=== PATIENT | female | born 1990 | race American Indian/Alaskan Native ===

== ENCOUNTER 2020-01-21 20:46 | Emergency (ER) | payer MEDICAID ==
[2020-01-22] MEDS ORDERED: KETOROLAC 30 MG/1 ML INJ IM ONE (01:31)
[2020-01-22] MEDS ORDERED: oxyCODONE /ACETAMINOPHEN 5-325MG TAB PO ONE (01:31)
[2020-01-22] MEDS ORDERED: ONDANSETRON 4 MG ODT TAB PO ONE (01:31)
--- NOTE | 2020-01-22 01:43 | Emergency Department Report ---
ED General Adult HPI - General Chief complaint: Dental/Oral Stated complaint: TOOTH PAIN Source: patient Mode of arrival: Ambulatory Limitations: No Limitations - History of Present Illness Initial comments: Patient is a 29-year-old -[place] female with no past medical history presents to the ED with complaint of acute onset persistent severe left maxillary premolar molar toothache with swollen gums for the last 3 days. Patient states that she was initially evaluated and treated at another hospital where she was given a prescription of Augmentin 875-125 mg to be taken twice a day, and was also given a prescription for viscous lidocaine to swish and swallow for pain control as well as Orajel but the patient states that these medications have not helped control her pain. Patient states that the pain is constant and that she is unable to eat or sleep because of severe pain. Patient denies fever, chills, nausea, vomiting, dizziness, syncope, sore throat, abdo theo pain, headache, cough or nasal and sinus congestion and traumatic injury. MD Complaint: left maxillary premolar and molar toothache -: Sudden, days(s) (3) Radiation: non-radiation Severity scale (0 -10): 8 Quality: aching, sharp Consistency: constant Improves with: none Worsens with: none Associated Symptoms: denies other symptoms. denies: confusion, chest pain, cou gh, diaphoresis, fever/chills Treatments Prior to Arrival: NSAID - Related Data Previous Rx's Medication Instructions Recorded Last Taken Type Acetaminophen/Codeine [Tylenol 1 - 2 tab PO Q6H PRN #12 tab 01/22/20 Unknown Rx /Codeine # 3 tab] Allergies Allergy/AdvReac Type Severity Reaction Status Date / Time No Known Allergies Allergy Verified 01/21/20 21:19 ED Review of Systems ROS: Stated complaint: TOOTH PAIN Other details as noted in HPI Constitutional: denies: chills, fever Eyes: denies: eye pain, eye discharge, vision change ENT: dental pain, other (Swollen left maxillary gingiva with premolar molar toothache). denies: ear pain, throat pain Respiratory: denies: cough, shortness of breath, wheezing Cardiovascular: denies: chest pain, palpitations Endocrine: no symptoms reported Gastrointestinal: denies: abdominal pain, nausea, diarrhea Genitourinary: denies: urgency, dysuria, discharge Musculoskeletal: denies: back pain, joint swelling, arthralgia Skin: denies: rash, lesions Neurological: denies: headache, weakness, paresthesias Psychiatric: denies: anxiety, depression Hematological/Lymphatic: denies: easy bleeding, easy bruising ED Past Medical Hx - Past Medical History Previous Medical History?: No - Surgical History Past Surgical History?: No - Social History Smoking Status: Never Smoker Substance Use Type: None - Medications Home Medications: Home Medications Medication Instructions Recorded Confirmed Last Taken Type Acetaminophen/Codeine [Tylenol 1 - 2 tab PO Q6H PRN #12 tab 01/22/20 Unknown Rx /Codeine # 3 tab] ED Physical Exam - General Limitations: No Limitations General appearance: alert, in no apparent distress - Head Head exam: Present: atraumatic, normocephalic - Eye Eye exam: Present: normal appearance, PERRL, EOMI Pupils: Present: normal accommodation - ENT ENT exam: Present: normal exam, mucous membranes moist, TM's normal bilaterally, normal external ear exam, other (Swelling, tender left maxillary gingiva with severely tender left maxillary premolar molar teeth) - Neck Neck exam: Present: normal inspection - Respiratory Respiratory exam: Present: normal lung sounds bilaterally. Absent: respiratory distress, wheezes, rales, rhonchi, chest wall tenderness, accessory muscle use - Cardiovascular Cardiovascular Exam: Present: regular rate, normal rhythm, normal heart sounds. Absent: systolic murmur, diastolic murmur, rubs, gallop - GI/Abdominal GI/Abdominal exam: Present: soft, normal bowel sounds. Absent: tenderness, guarding, rebound, hyperactive bowel sounds - Extremities Exam Extremities exam: Present: normal inspection, full ROM, normal capillary refill - Back Exam Back exam: Present: normal inspection, full ROM. Absent: tenderness, CVA tenderness (R), muscle spasm, paraspinal tenderness, vertebral tenderness - Neurological Exam Neurological exam: Present: alert, oriented X3, CN II-XII intact, normal gait, reflexes normal - Psychiatric Psychiatric exam: Present: normal affect, normal mood - Skin Skin exam: Present: warm, dry, intact, normal color. Absent: rash ED Course Vital Signs 01/21/20 01/22/20 21:13 01:47 Temperature 98.6 F Pulse Rate 70 Respiratory 16 20 Rate Blood Pressure 144/94 O2 Sat by Pulse 100 Oximetry ED Medical Decision Making - Medical Decision Making This is a 29-year-old -[place] female with no past medical history presents to the ED with complaint of acute onset persistent severe left maxillary premolar molar toothache with swollen gums for the last 3 days. Patient states that she was initially evaluated and treated at another hospital where she was given a prescription of Augmentin 875-125 mg to be taken twice a day, and was also given a prescription for viscous lidocaine to swish and swallow for pain control as well as Orajel but the patient states that these medications have not helped control her pain. Patient states that the pain is constant and that she is unable to eat or sleep because of severe pain. In the ED, patient is alert and oriented x3 and is not in distress. Patient was treated for pain in the ED. Lab test results for showed a positive hCG serum test. On reevaluation, patient's pain is well controlled with medications and patient was discharged home on pain medications and advised to continue taking the previously prescribed Augmentin and to follow-up with a dentist in 7 to 10 days for reevaluation. Patient was also advised to return to the ED immediately if symptoms get worse. - Differential Diagnosis dental abscess; dental caries; dental cavities; gingivitis Critical care attestation.: If time is entered above; I have spent that time in minutes in the direct care of this critically ill patient, excluding procedure time. ED Disposition Clinical Impression: Dental abscess, Acute gingivitis, Dental caries, as incidental finding Disposition: - TO HOME OR SELFCARE Is pt being admited?: No Does the pt Need Aspirin: No Condition: Stable Instructions: Dental Abscess (ED), Gingivitis (ED), (ED) Additional Instructions: Continue taking the previously prescribed oral antibiotics, and pain medication as advised. Follow-up with your dentist in 7 to 10 days for reevaluation. Return to the ED immediately if symptoms get worse. Prescriptions: Acetaminophen/Codeine [Tylenol /Codeine # 3 tab] 1 - 2 tab PO Q6H PRN #12 tab PRN Reason: Pain , Severe (7-10) Referrals: [facility] [Outside] - 7-10 days Time of Disposition: 02:08 Print Language: POLISH
[2020-01-22 03:44] VITALS: BP 132/72
== END 2020-01-22 03:45 | disposition home or self-care (01) ==
LOC: ED 20:46
DX: K04.7 Periapical abscess without sinus (principal); K02.9 Dental caries, unspecified; K05.00 Acute gingivitis, plaque induced; Z33.1 Pregnant state, incidental; Z79.899 Other long term (current) drug therapy
CPT/HCPCS: 36415; 84703; 96372; 99283; J1885; Q0162

== ENCOUNTER 2020-08-07 21:04 | Outpatient (CLI) | payer MEDICAID ==
[2020-08-07] MEDS ORDERED: LACTATED RINGERS 500 ML IV ONE (21:58)
[2020-08-07 22:00] VITALS: BP 127/70
[2020-08-07 22:26] LABS: Bacteria,Urine 4+ /HPF (Negative); Bilirubin,Urine NEG (Negative); Blood,Urine NEG (Negative); Color,Urine Yellow (Yellow); Mucus,Urine FEW /HPF; Protein,Urine <15 mg/dL mg/dL (Negative); Urobilinogen,Urine < 2.0 mg/dL (<2.0)
[2020-08-07] MEDS ORDERED: LIDOCAINE-MPF (1%) 10 MG/1 ML VIAL 5 ML INFILTRATI ONE (23:53)
== END 2020-08-08 01:05 | disposition home or self-care (01) ==
LOC: TRG 21:04 → APU 21:07 → TRG 08-08 01:05
PROVIDERS: ATTEND Obstetrics & Gynecology
DX: O26.893 Other specified pregnancy related conditions, third trimester (principal); R10.30 Lower abdominal pain, unspecified; O99.013 Anemia complicating pregnancy, third trimester; M79.606 Pain in leg, unspecified; Z3A.31 31 weeks gestation of pregnancy
CPT/HCPCS: 59025; 81001; 96372; J0696

== ENCOUNTER 2020-08-29 07:35 | Observation (INO) | payer MEDICAID ==
--- NOTE | 2020-08-29 07:56 | Emergency Department Report ---
ED ENT HPI - General Chief complaint: Dental/Oral Stated complaint: TOOTHACHE Time Seen by Provider: 08/29/20 07:46 Source: patient Mode of arrival: Ambulatory Limitations: No Limitations - History of Present Illness Initial comments: pt is a 30 yo female who presents to the ED with c/o left upper dental pain that exacerbated a week ago. She states for the last 2 days she has had left- sided facial swelling. Patient states that she has a hole in one of her teeth and needs to have a tooth pulled. She had the same symptoms back in January and saw a dentist at that time but due to insurance issues she was not able to have the tooth pulled then. She states that due to her being 36 weeks they would not pull the tooth currently. She denies any fever, nausea, vomiting, diarrhea, headache, vision changes, abdominal pain, vaginal bleeding. She denies any past medical history. She denies ever having elevated blood pressure in the past. No allergies to medications. She states that she has been taking some leftover amoxicillin that she had from her last incident over the last week but continues to have facial swelling. - Related Data Home Medications Medication Instructions Recorded Confirmed Last Taken Ferrous Sulfate [Iron 325 MG] 1 tab PO DAILY 08/07/20 08/07/20 Unknown Vitamin 1 tab PO DAILY 08/07/20 08/07/20 Unknown Previous Rx's Medication Instructions Recorded Last Taken Type Acetaminophen [Tylenol] 650 mg PO Q8HR PRN #20 capsule 08/29/20 Unknown Rx Chlorhexidine Mouthwash [Peridex] 15 ml MM BID #1 bottle 08/29/20 Unknown Rx Clindamycin [Clindamycin CAP] 450 mg PO Q8HR 7 Days #63 capsule 08/29/20 Unknown Rx Allergies Allergy/AdvReac Type Severity Reaction Status Date / Time No Known Allergies Allergy Verified 08/29/20 09:29 ED Dental HPI - General Chief complaint: Dental/Oral Stated complaint: TOOTHACHE Time Seen by Provider: 08/29/20 07:46 Source: patient Mode of arrival: Ambulatory Limitations: No Limitations - Related Data Home Medications Medication Instructions Recorded Confirmed Last Taken Ferrous Sulfate [Iron 325 MG] 1 tab PO DAILY 08/07/20 08/07/20 Unknown Vitamin 1 tab PO DAILY 08/07/20 08/07/20 Unknown Previous Rx's Medication Instructions Recorded Last Taken Type Acetaminophen [Tylenol] 650 mg PO Q8HR PRN #20 capsule 08/29/20 Unknown Rx Chlorhexidine Mouthwash [Peridex] 15 ml MM BID #1 bottle 08/29/20 Unknown Rx Clindamycin [Clindamycin CAP] 450 mg PO Q8HR 7 Days #63 capsule 08/29/20 Unknown Rx Allergies Allergy/AdvReac Type Severity Reaction Status Date / Time No Known Allergies Allergy Verified 08/29/20 09:29 ED Review of Systems ROS: Stated complaint: TOOTHACHE Other details as noted in HPI Comment: All other systems reviewed and negative ED Past Medical Hx - Past Medical History Hx Hypertension: No Hx Diabetes: Yes (GEST DIABETES) Hx Deep Vein Thrombosis: No Hx Renal Disease: No Hx Sickle Cell Disease: No (trait) Hx Seizures: No Hx Asthma: No Hx HIV: No - Surgical History Past Surgical History?: No - Social History Smoking Status: Never Smoker Substance Use Type: None - Medications Home Medications: Home Medications Medication Instructions Recorded Confirmed Last Taken Type Ferrous Sulfate [Iron 325 MG] 1 tab PO DAILY 08/07/20 08/07/20 Unknown History Vitamin 1 tab PO DAILY 08/07/20 08/07/20 Unknown History Acetaminophen [Tylenol] 650 mg PO Q8HR PRN #20 capsule 08/29/20 Unknown Rx Chlorhexidine Mouthwash [Peridex] 15 ml MM BID #1 bottle 08/29/20 Unknown Rx Clindamycin [Clindamycin CAP] 450 mg PO Q8HR 7 Days #63 capsule 08/29/20 Unknown Rx ED Physical Exam - General Limitations: No Limitations General appearance: alert, in no apparent distress - Head Head exam: Present: atraumatic, normocephalic - Eye Eye exam: Present: normal appearance - ENT ENT exam: Present: mucous membranes moist, other (there is a dental carry pre sent to the right upper tooth with a hole present, there is a 2 cm area of induration present to the right upper gumline/cheek, there is mild right upper facial edema, uvula is midline, no uvular edema or deviation, no tongue elevation, no trismus, no muffled voice) - Respiratory Respiratory exam: Absent: respiratory distress, accessory muscle use - Neurological Exam Neurological exam: Present: alert, oriented X3 - Psychiatric Psychiatric exam: Present: normal affect, normal mood - Skin Skin exam: Present: warm, dry, intact ED Course Vital Signs 08/29/20 07:43 Temperature 98.8 F Pulse Rate 85 Respiratory 20 Rate Blood Pressure 151/99 O2 Sat by Pulse 100 Oximetry ED Medical Decision Making - Medical Decision Making pt is a 30 yo female who presents to the ED with c/o left upper dental pain that exacerbated a week ago. She states for the last 2 days she has had left- sided facial swelling. Patient states that she has a hole in one of her teeth and needs to have a tooth pulled. She had the same symptoms back in January and saw a dentist at that time but due to insurance issues she was not able to have the tooth pulled then. She states that due to her being 36 weeks they would not pull the tooth currently. She denies any fever, nausea, vomiting, diarrhea, headache, vision changes, abdominal pain, vaginal bleeding. She denies any past medical history. She denies ever having elevated blood pressure in the past. No allergies to medications. She states that she has been taking some leftover amoxicillin that she had from her last incident over the last week but continues to have facial swelling. vitals with elevated BP at 151/99, otherwise vitals are normal. on exam:there is a dental carry present to the right upper tooth with a hole present, there is a 2 cm area of induration present to the right upper gumline/cheek, there is mild right upper facial edema, uvula is midline, no uvular edema or deviation, no tongue elevation, no trismus, no muffled voice. Examination appears consistent with dental caries and dental abscess. No signs of Ludwigs, airway compromise, or significant facial abscess at this time. Discussed case with Dr. Perales, ER attending who agrees with sending patient to L&D for monitoring due to elevated blood pressure in over 20 weeks. Patient was found to have elevated blood pressure reading and she is 36 weeks , will send to L&D for evaluation, patient given prescriptions for dental abscess and discussed the importance of dental follow up and taking antibiotics as prescribed to completion. Discussed return precautions with patient. Patient sent to L&D by Shruti nurse educator via wheelchair. Critical care attestation.: If time is entered above; I have spent that time in minutes in the direct care of this critically ill patient, excluding procedure time. ED Disposition Clinical Impression: Dental abscess, Elevated blood pressure reading Disposition: DC-01 TO HOME OR SELFCARE Is pt being admited?: No Does the pt Need Aspirin: No Condition: Stable Time of Disposition: 07:54
--- NOTE | 2020-08-29 09:23 | Event Note ---
Date: 08/29/20 (Tooth pain) Pt is a 30 y.o pt of Asad Hagen @ 34.5 wks, EDC of 10/05/20. Presents to labor and delivery triage with c/o tooth ache. States that she was being seen in the ER but when her blood pressure became elevated, she was sent to labor and delivery. Rates tooth ache 10/10. Upon admission to triage, pt was noted to be toyin every 2-4 minutes. Pt states that she is feeling ctxs. Cervical exam cl//hi. Discussed that we will need to obtain blood work and labs d/t blood pressures being elevated. Blood pressure during dental exam was 151/99. Pt states that her blood pressure was high d/t tooth pain. Denies DEAN, blurred vision, spots before her eyes, chest pain, shortness of breath, and upper abdominal pain. Pt states that the only complication this is GDM. States that she is a previous X3. Of note, she showed the pin pusher a note from OBGYN office. The note was written on a prescription pad that stated the patient had a 8cm window noted on her uterus during last . Consulted with Dr. Gutierrez. Will order IV fluids d/t ctxs, Extra Strength Tylenol for pain, serial blood pressures, and pre eclampsia labs. Discussed plan of care with patient, she verbalized understanding and agreed. Will monitor blood pressures and await for lab results.
[2020-08-29] MEDS ORDERED: LACTATED RINGERS 1,000 ML IV ONE (09:27)
[2020-08-29] MEDS ORDERED: LACTATED RINGERS 500 ML IV ONE (09:28)
[2020-08-29] MEDS ORDERED: ACETAMINOPHEN 500 MG TAB PO ONE (09:30)
[2020-08-29 10:57] LABS: Hematocrit 32.5 % (30.3-42.9); Hemoglobin 10.5 gm/dl (10.1-14.3); Mean Corpuscular HGB Conc 32 % (30-34); Mean Corpuscular Volume 70 fl (79-97); Platelet Count 122 K/mm3 (140-440); Red Blood Count 4.62 M/mm3 (3.65-5.03)
[2020-08-29 10:59] LABS: Red Cell Distribution Width 20.4 % (13.2-15.2)
[2020-08-29 11:15] LABS: Bilirubin,Urine NEG (Negative); Blood,Urine NEG (Negative); Color,Urine Yellow (Yellow); Protein,Urine <15 mg/dL mg/dL (Negative); Urobilinogen,Urine < 2.0 mg/dL (<2.0)
[2020-08-29 11:16] LABS: Alanine Aminotransferase 12 units/L (7-56); Uric Acid 4.1 mg/dL (3.5-7.6)
[2020-08-29] MEDS ORDERED: ALUM-MAG HYDROXIDE-SIMETHICONE 200-200-20MG/5ML ORAL LIQD 30 ML PO PRN (11:39)
[2020-08-29] MEDS ORDERED: ONDANSETRON 4 MG/2 ML INJ IV PRN (11:39)
[2020-08-29] MEDS ORDERED: ACETAMINOPHEN 325 MG TAB PO PRN (11:39)
[2020-08-29] MEDS ORDERED: DOCUSATE SODIUM 100 MG CAP PO PRN (11:39)
[2020-08-29] MEDS ORDERED: diphenhydrAMINE 25 MG CAP PO PRN (11:39)
[2020-08-29] MEDS ORDERED: LACTATED RINGERS 1,000 ML IV SCH (11:45)
--- NOTE | 2020-08-29 11:45 | History and Physical Report ---
History of Present Illness Date of examination: 08/29/20 (Elevated BP's and thrombocytopenia) Date of admission: 08/29/2020 Chief complaint: Toothache. Came from ER when it was found that she had an elevated BP. History of present illness: Pt presented to ER with a c/o a toothache. She is 34.5 wks via EDC given 10/05/2020. During the dental exam, her blood pressure was found to be 151/99. She was then transported to labor and delivery triage d/t this elevated BP. She has a history of a X3. she showed a note written on a prescription pad to the triage nurse. States that this note was from her doctor. The note states that during her last she had a 8 cm window noted. She denies any other medical history, including HTN and thrombocytopenia (discovered during this triage visit). Only complication this is GDM. Past History Past Medical History: no pertinent history Past Surgical History: section (X3) Family/Genetic History: none Social history: no significant social history - Obstetrical History Expected Date of Delivery: 10/05/20 Actual Gestation: 34 Week(s) 5 Day(s) : 5 Para: 3 Hx # Term Pregnancies: 3 Number of Pregnancies: 0 Spontaneous Abortions: 1 Induced : 0 Number of Living Children: 3 Medications and Allergies Allergies Allergy/AdvReac Type Severity Reaction Status Date / Time No Known Allergies Allergy Verified 08/29/20 09:29 Home Medications Medication Instructions Recorded Confirmed Last Taken Type Ferrous Sulfate [Iron 325 MG] 1 tab PO DAILY 08/07/20 08/07/20 Unknown History Vitamin 1 tab PO DAILY 08/07/20 08/07/20 Unknown History Acetaminophen [Tylenol] 650 mg PO Q8HR PRN #20 capsule 08/29/20 Unknown Rx Chlorhexidine Mouthwash [Peridex] 15 ml MM BID #1 bottle 08/29/20 Unknown Rx Clindamycin [Clindamycin CAP] 450 mg PO Q8HR 7 Days #63 capsule 08/29/20 Unknown Rx Active Meds: Active Medications Acetaminophen (Acetaminophen 325 Mg Tab) 1,000 mg PO Q6H PRN PRN Reason: Pain MILD(1-3)/Fever >100.5/DEAN Al Hydrox/Mg Hydrox/Simethicone (Alum-Mag Hydroxide-Simethicone [phone]/5ml Oral Liqd 30 Ml) 30 ml PO Q6H PRN PRN Reason: Indigestion Diphenhydramine HCl (Diphenhydramine 25 Mg Cap) 25 mg PO Q6H PRN PRN Reason: Itching Docusate Sodium (Docusate Sodium 100 Mg Cap) 100 mg PO Q12H PRN PRN Reason: Constipation Lactated Ringer's (Lactated Ringers) 1,000 mls @ 125 mls/hr IV DIRECT CHANEL Multivitamins/Iron/Calcium ( Soc60-Zg Fumarate-Folic Acid Vit Tab) 1 each PO QDAY CHANEL Ondansetron HCl (Ondansetron 4 Mg/2 Ml Inj) 4 mg IV Q6H PRN PRN Reason: Nausea And Vomiting Oxycodone/Acetaminophen (Oxycodone /Acetaminophen 5-325mg Tab) 1 tab PO Q6H PRN PRN Reason: Pain, Moderate (4-6) Review of Systems All systems: negative - Vital Signs Vital signs: Vital Signs Temp Pulse Resp BP Pulse Ox 98.8 F 85 20 151/99 100 08/29/20 07:43 08/29/20 07:43 08/29/20 07:43 08/29/20 07:43 08/29/20 07:43 Temp Pulse Resp BP Pulse Ox 97.9 F 78 20 136/81 99 08/29/20 11:07 08/29/20 11:41 08/29/20 11:07 08/29/20 11:36 08/29/20 11:41 - Physical Exam Breasts: Positive: deferred Cardiovascular: Regular rate Lungs: Positive: Normal air movement Abdomen: Positive: normal appearance, soft, normal bowel sounds. Negative: distention, tenderness Genitourinary (Female): Positive: normal external genitalia, normal perenium Vulva: both: normal Vagina: Positive: normal moisture. Negative: discharge Cervix: Negative: lesion, discharge Uterus: Positive: normal size, normal contour Adnexa: both: normal Anus/Rectum: Positive: normal perianal skin Extremities: Positive: normal Deep Tendon Reflex Grade: Normal +2 - Obstetrical FHR: category 1 Uterine Contraction Monitor Mode: External Cervical Dilatation: 0 Cervical Effacement Percentage: 0 (Membranes intact.) station: OOP Uterine Contraction Pattern: Regular Uterine Tone Measurement Phase: Resting Uterine Contraction Intensity: Mild Results Result Diagrams: 08/29/20 10:25 08/29/20 10:25 Abnormal lab results 08/29/20 08/29/20 Range/Units 10:25 10:25 MCV 70 L (79-97) fl MCH 23 L (28-32) pg RDW 20.4 H (13.2-15.2) % Plt Count 122 L (140-440) K/mm3 Creatinine 0.5 L (0.6-1.2) mg/dL Lactate Dehydrogenase 300 H (91-180) units/L All other labs normal. GBS NEGATIVE LABS DRAWN Assessment and Plan A: 30 y.o. @ 34.5 wks with pt reported GDM this , tooth ache, elevated BP's during dental exam, thrombocytopenia noted on pre eclampsia labs. - Patient Problems (1) Elevated blood pressure affecting , antepartum Onset Date: ~08/29/20 Current Visit: Yes Status: Acute Plan to address problem: Admit to labor and delivery for 24 hour observation. 24 hour urine to be initiated and completed. (2) with 34 to 36 completed weeks gestation Onset Date: ~08/29/20 Current Visit: Yes Status: Acute Plan to address problem: EFM to monitor status. Contractions noted, IV fluid bolus ordered. (3) Dental abscess Onset Date: ~08/29/20 Current Visit: Yes Status: Acute Plan to address problem: Seen in the ER for dental abscess. Given numbers for dental care by ER staff. Pain medication ordered for pain. (4) Thrombocytopenia affecting Onset Date: ~08/29/20 Current Visit: Yes Status: Acute Plan to address problem: Found to be 122. Will redraw in the AM.
[2020-08-29] MEDS ORDERED: PRENATAL VIT27-FE FUMARATE-FOLIC ACID VIT TAB PO SCH (12:00)
[2020-08-29 14:35] LABS: Hepatitis C Virus Antibody Non-Reactive (NonReactive)
[2020-08-29] MEDS: oxyCODONE /ACETAMINOPHEN 5-325MG TAB PO PRN ×2 (15:21→23:13)
[2020-08-29] MEDS ORDERED: BENZOCAINE 13 ML BOTTLE (ORAJEL) MM PRN (22:57)
--- NOTE | 2020-08-30 13:29 | Progress Note ---
Assessment and Plan - Patient Problems (1) Elevated blood pressure affecting , antepartum Onset Date: ~08/29/20 Current Visit: Yes Status: Acute Plan to address problem: Patient blood pressures were normotensive for the most part patient without any signs or symptoms of preeclampsia. Patient's 24-hour urine protein collection should be completed soon. Will reevaluate once labs are completed patient is stable will allow home. Encouraged the patient to contact her physician. (2) with 34 to 36 completed weeks gestation Onset Date: ~08/29/20 Current Visit: Yes Status: Acute (3) Dental abscess Onset Date: ~08/29/20 Current Visit: Yes Status: Acute Subjective - Subjective Date of service: 08/30/20 Interval history: Patient states her tooth pain is decreased significantly denies any headache blurred vision or abdominal pain Patient reports: no new complaints Objective - Vital Signs Vital Signs: Vital Signs - 12hr 08/30/20 08/30/20 08/30/20 01:53 02:52 03:52 Temperature Pulse Rate 85 76 81 Respiratory Rate Blood Pressure 124/71 111/62 109/71 Blood Pressure [Right] 08/30/20 08/30/20 08/30/20 04:30 04:52 05:52 Temperature 97.5 F L Pulse Rate 77 85 Respiratory 16 Rate Blood Pressure 108/64 111/74 Blood Pressure [Right] 08/30/20 08/30/20 08/30/20 06:53 07:50 07:52 Temperature 98.3 F Pulse Rate 70 70 80 Respiratory 18 Rate Blood Pressure 113/71 124/80 Blood Pressure 113/71 [Right] 08/30/20 08/30/20 08/30/20 08:52 09:52 11:58 Temperature Pulse Rate 75 86 79 Respiratory Rate Blood Pressure 123/75 124/73 127/65 Blood Pressure [Right] 08/30/20 08/30/20 08/30/20 12:29 12:30 12:52 Temperature 98.5 F Pulse Rate 72 72 78 Respiratory 18 Rate Blood Pressure 127/88 122/68 Blood Pressure 127/88 [Right] - Exam Breasts: deferred Cardiovascular: Regular rate Lungs: Normal air movement Abdomen: Present: normal appearance FHR: category 1 Uterine Contraction Pattern: Irregular Uterine Contraction Intensity: Mild - Labs Labs: Abnormal Labs 08/29/20 08/29/20 08/29/20 10:25 10:25 15:51 MCV 70 L MCH 23 L RDW 20.4 H Plt Count 122 L Creatinine 0.5 L POC Glucose 62 L Lactate Dehydrogenase 300 H Laboratory Results - last 24 hr 08/29/20 08/29/20 08/29/20 13:31 13:31 13:31 POC Glucose Syphilis IgG Antibody Nonreactive Hep Bs Antigen Non-reactive Hepatitis C Antibody Non-reactive HIV 1&2 Antibody Rapid Non react HIV P24 Antigen Non react Rubella IgG Antibody Immune 08/29/20 15:51 POC Glucose 62 L Syphilis IgG Antibody Hep Bs Antigen Hepatitis C Antibody HIV 1&2 Antibody Rapid HIV P24 Antigen Rubella IgG Antibody
[2020-08-30] MEDS ORDERED: ACETAMINOPHEN 500 MG TAB PO PRN (13:51)
[2020-08-30 15:41] LABS: Creatinine,Urine 47.1 mg/dL (0.1-20.0)
--- NOTE | 2020-08-30 16:15 | Discharge Summary ---
Providers - Providers Date of Admission: 08/29/20 11:32 Date of discharge: 08/30/20 Attending physician: SHANTEL KHAN Primary care physician: SHANTEL KHAN Hospitalization Reason for admission: Elevated blood pressure and urine and tooth pain Condition: Good Hospital course: Please see dictated H&P for details. Patient's blood pressure normalized during her observation. Her 24-hour urine protein returned less than 300 mcg. The patient had no signs or symptoms of preeclampsia. Patient's tooth pain did improve. 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 Disposition: [id number] TO HOME OR SELFCARE - Discharge Diagnoses (1) Elevated blood pressure affecting , antepartum Status: Acute (2) with 34 to 36 completed weeks gestation Status: Acute (3) Dental abscess Status: Acute Core Measure Documentation - Palliative Care Palliative Care/ Comfort Measures: Not Applicable - Core Measures Any of the following diagnoses?: none Exam - Constitutional Vitals: Temp Pulse Resp BP Pulse Ox 98.5 F 74 18 115/71 99 08/30/20 12:30 08/30/20 15:53 08/30/20 14:09 08/30/20 15:53 08/29/20 11:51 General appearance: Present: no acute distress - Respiratory Respiratory effort: normal - Cardiovascular Rhythm: regular - Extremities Extremities: no ischemia - Abdominal General gastrointestinal: Present: soft Female genitourinary: Present: deferred - Rectal Rectal Exam: deferred - Integumentary Integumentary: Present: clear, warm, dry - Psychiatric Psychiatric: appropriate mood/affect, intact judgment & insight - Neurologic Neurologic: moves all extremities Plan Activity: no restrictions Diet: regular Additional Instructions: Patient is to follow-up with Dr. Hagen for obstetrical complaints. Patient is to follow-up with dental professional to treat her tooth abscess Follow up with: [facility] [Outside] - 2-3 Days [facility] [Outside] - 2-3 Days Prescriptions: Clindamycin [Clindamycin CAP] 450 mg PO Q8HR 7 Days #63 capsule Chlorhexidine Mouthwash [Peridex] 15 ml MM BID #1 bottle Acetaminophen [Tylenol] 650 mg PO Q8HR PRN #20 capsule PRN Reason: pain
[2020-08-30 16:45] VITALS: BP 130/84
== END 2020-08-30 17:00 | disposition home or self-care (01) ==
LOC: TRG 07:35 → EDSTATUS 08:49 → APU 08:52 → LD 11:32 → TRG 11:32
PROVIDERS: ADMIT Obstetrics & Gynecology; ATTEND Obstetrics & Gynecology
DX: O26.893 Other specified pregnancy related conditions, third trimester (principal); Z20.822 Contact with and (suspected) exposure to COVID-19; R03.0 Elevated blood-pressure reading, without diagnosis of hypertension; K04.7 Periapical abscess without sinus; O99.113 Other diseases of the blood and blood-forming organs and certain disorders involving the immune mechanism complicating pregnancy, third trimester; Z3A.34 34 weeks gestation of pregnancy; Z79.899 Other long term (current) drug therapy
CPT/HCPCS: 36415; 81001; 82565; 82570; 82575; 82962; 83615; 84156; 84450; 84460; 84550; 85027; 86592; 86706; 86762; 86803; 86850; 86900; 86901; 87806; 99284; G0378; J7120; U0003